=== PATIENT | male | born 1990 | race Caucasian/White ===

== ENCOUNTER 2017-02-24 10:38 | Inpatient (IN) | payer OTHER ==
[2017-02-24] MEDS ORDERED: ONDANSETRON HCL/PF 4 MG/ 2ML VIAL IVP ONE (11:10)
[2017-02-24] MEDS ORDERED: 0.9 % SODIUM CHLORIDE 1,000 ML IV ONE ×2 (11:15→12:06)
[2017-02-24 11:22] LABS: BASOPHILS % 0.3 (0.0-1.5); EOSINOPHILS % 1.1 % (0.0-6.8); MEAN CORPUSCULAR HEMOGLOBIN 28.9 pg (28.0-34.0); MEAN CORPUSCULAR VOLUME 84.6 fl (80.0-100.0); MONOCYTES % 7.8 % (0.0-11.0); NEUTROPHILS # 18.8 # k/uL (1.4-7.7)
[2017-02-24] MEDS ORDERED: 0.9 % SODIUM CHLORIDE 1,000 ML IV SCH ×2 (11:30→12:00)
--- NOTE | 2017-02-24 11:31 | ED Physician Documentation ---
General Adult - HISTORIAN Historian: patient, other (staff report from [facility]) - HPI Stated Complaint: dehydration Chief Complaint: General Adult Additional Information: Fentanyl abuse patient at [facility]. Has been in program and on Suboxone since 02/20/17. N/V began same day and persistent since. No abd. pain. No BM since starting program. Onset: days ago (4) Timing: still present Severity: moderate Modifying Factors: Fentanyl withdrawl program, no bm in over 4 days Further Comments: no Last known Well Date: 02/19/17 Last known Well Code/Unknown Code: Unknown - ROS CONST: no problems. denies: fever, sweating, recent illness, weakness, weight loss, chills EYES/ENT: none. denies: problems with vision, sore throat, nasal drainage, nasal congestion CVS/RESP: none. denies: chest pain, shortness of breath, cough GI/: vomiting, nausea, other (erectile dysfunction). denies: abdominal pain, diarrhea MS/SKIN/LYMPH: none NEURO/PSYCH: denies: headache, fainting, dizziness, tingling, numbness, difficulty walking, difficulty with speech, anxiety, depression - PAST HX Past History: other (Fentanyl addiction) Other History: none Surgeries/Procedures: none Immunizations: referred to PCP Allergies/Adverse Reactions: Allergies Allergy/AdvReac Type Severity Reaction Status Date / Time No Known Allergies Allergy Unverified 02/24/17 11:02 Home Medications: Ambulatory Orders Medication Instructions Recorded Buprenorphine HCl/Naloxone HCl 6 mg SL HS 02/24/17 [Suboxone 4 mg-1 mg Sl Film] Buprenorphine HCl/Naloxone HCl 8 mg SL [id number] 02/24/17 [Suboxone 4 mg-1 mg Sl Film] Quetiapine Fumarate [Seroquel] 50 mg PO HS 02/24/17 - SOCIAL HX Smoking History: cigarettes Alcohol Use: none Drug Use: other (Fentanyl) - FAMILY HX Family History: No - VITAL SIGNS Vital Signs: Vital Signs Temp Pulse Resp BP Pulse Ox 98.3 F 100 H 16 129/81 97 02/24/17 10:38 02/24/17 10:38 02/24/17 10:38 02/24/17 10:38 02/24/17 10:38 - REVIEWED ASSESSMENTS Nursing Assessment Reviewed: Yes Vitals Reviewed: Yes Progress - Results/Orders Results/Orders: cbc, cmp, ua, uds, etoh, ct abdomen/pelvis ordered - Progress Progress: pt. given 2 liters NS and 8 mg Zofran ivp in er, also 20 grams of lactulose (30 cc) and 2400 mg of MOM in er for constipation Critical Care Note - Critical Care Note Total Time (mins): 0 ED Results Lab/Radiology - Lab Results Lab Results: Lab Results 02/24/17 11:15 WBC 22.50 K/ul H K/ul (4.00-12.00) RBC 6.46 M/ul H M/ul (3.90-5.20) Hgb 18.6 g/dL H g/dL (12.0-18.0) Hct 54.6 % H % (37.0-53.0) MCV 84.6 fl fl (80.0-100.0) MCH 28.9 pg pg (28.0-34.0) MCHC 34.1 g/dL g/dL (30.0-36.0) RDW 13.0 % % (11.3-14.3) Plt Count 253 K/mm3 K/mm3 (130-400) Neut % (Auto) 83.8 % H % (39.0-79.0) Lymph % (Auto) 5.9 % L % (16.0-50.0) [place] % (Auto) 7.8 % % (0.0-11.0) Eos % (Auto) 1.1 % % (0.0-6.8) Baso % (Auto) 0.3 (0.0-1.5) Neut # (Auto) 18.8 # k/uL H # k/uL (1.4-7.7) Lymph # (Auto) 1.3 # k/uL # k/uL (0.6-4.0) [place] # (Auto) 1.8 # k/uL H # k/uL (0.0-0.9) Eos # (Auto) 0.3 # k/uL # k/uL (0.0-0.6) Baso # (Auto) 0.1 # k/uL # k/uL (0.0-0.5) Reactive Lymphs % 1.0 % % (0.0-5.0) Reactive Lymphs # 0.2 # k/uL # k/uL (0.0-0.8) - Radiology Radiology Impressions: ct abd/pelvis shows ileitis, constipation - Orders Orders: ED Orders Category Date Time Status CT ABD & PELVIS W/O CON Stat Exams 02/24/17 Ordered AMYLASE Routine Lab 02/24/17 11:10 Ordered CBC/PLATELET/DIFF Routine Lab 02/24/17 11:10 Ordered CMP Routine Lab 02/24/17 11:10 Ordered DRUG SCREEN URINE MEDICAL ONLY Routine Lab 02/24/17 Ordered ETHANOL MEDICAL USE ONLY Routine Lab 02/24/17 Ordered URINALYSIS Routine Lab 02/24/17 11:10 Ordered NORMAL SALINE @ 1000 MLS/HR ( 1000ml) (BOLUS) Med 02/24/17 11:30 Ordered 0.9 % Sodium Chloride [Normal Saline] 1,000 ml IV .Q1H Ondansetron HCl/Pf [Zofran 4 mg/2 ml] Med 02/24/17 11:10 Once 8 mg IVP NOW ONE General Adult Physical Exam - PHYSICAL EXAM GENERAL APPEARANCE: no distress EENT: eye inspection normal, ENT inspection normal, pharynx normal, no signs of dehydration, KING, no nystagmus, TM's nml NECK: normal inspection, thyroid normal, supple RESPIRATORY: no resp distress, chest non-tender, breath sounds normal CVS: reg rate & rhythm, heart sounds normal, equal pulses, no murmur, no gallop , PMI nml, no JVD ABDOMEN: soft, no organomegaly, no abdominal bruit, no distension, non-tender, decreased BS. No: rigid, hepatomegaly, mass BACK: normal inspection, no CVA tenderness SKIN: warm/dry, normal color EXTREMITIES: non-tender, normal range of motion, no evidence of injury, no edema NEURO: oriented X3, CN's nml as tested, motor nml, sensation nml, depressed mood /affect Discharge Clincal Impression: Dehydration, Ileitis, Hyponatremia Constipation Qualifiers: Constipation type: drug induced constipation Qualified Code(s): K59.03 - Drug induced constipation Referrals: Primary Doctor,No [REFERRING] - 2 Days Home Medications: Ambulatory Orders Buprenorphine HCl/Naloxone HCl [Suboxone 4 mg-1 mg Sl Film] 6 mg SL HS 02/24/17 Buprenorphine HCl/Naloxone HCl [Suboxone 4 mg-1 mg Sl Film] 8 mg SL [id number] 02/24 Quetiapine Fumarate [Seroquel] 50 mg PO HS 02/24/17 Comments: Case discussed with Zoltan Mckeon who accepts admission Condition: Stable Disposition: ADMITTED INPATIENT Decision to Admit: [id number] Decision Time: 13:30
[2017-02-24 11:39] LABS: eGFR (African) > 60; eGFR (Non-African) 52
[2017-02-24] MEDS ORDERED: POTASSIUM CHLORIDE 20 MEQ TABLET.ER PO ONE (12:02)
[2017-02-24] MEDS ORDERED: MAGNESIUM HYDROXIDE 400 MG/5 ML 30ML UDC PO ONE (13:54)
[2017-02-24] MEDS ORDERED: LACTULOSE 10 GM/15 ML UDC PO SCH (14:00)
[2017-02-24] MEDS ORDERED: LACTULOSE 10 GM/15 ML UDC PO ONE (14:00)
[2017-02-24] MEDS ORDERED: ONDANSETRON HCL/PF 4 MG/ 2ML VIAL IVP PRN (14:21)
[2017-02-24] MEDS ORDERED: QUEtiapine FUMARATE 25 MG TABLET PO ONE (14:21)
[2017-02-24] MEDS ORDERED: CYCLOBENZAPRINE HCL 5 MG TABLET PO PRN (14:32)
[2017-02-24] MEDS ORDERED: traMADol HCL 50 MG TABLET PO PRN (14:34)
[2017-02-24] MEDS ORDERED: SALINE FLUSH 10 ML DISP.SYRIN IVF ONE (14:41)
--- NOTE | 2017-02-24 14:47 | Diagnostic Imaging Report ---
FARHAN MONTIEL [facility] [id number] [facility] [address] [place], [place]. [address] Report Submission Date: Feb 24, 2017 12:41:34 PM CDT Patient Study Name: LUIZA MO Date: Feb 24, 2017 11:19:02 AM CDT Modality Type: CT\SR Gender: M Description: CT ABD & PELVIS W/O CO : 88 Institution: [facility] Physician: FARHAN MONTIEL Examination: CT Abdomen/pelvis History: Abdominal discomfort Comparison exams: None available Technique: CT Abdomen/pelvis without contrast protocol. Findings: Liver, spleen, adrenal glands, right kidney, pancreas and gallbladder are without irregularity given technique. No gallstone. 1 mm mid left calyceal calcification. No evidence for ureteral calcification abnormal dilation bilaterally. Few scattered pelvic phleboliths. Abdominal aorta without dilation or atherosclerotic disease. Bowel without contrast limiting evaluation. No evidence for acute mesenteric inflammation or free air. Stool within the large bowel limiting sensitivity. Few loops of small bowel with air-fluid levels upper central abdomen. Appendix is identified and is without inflammatory changes. Osseous structures are appropriate for age. Lung bases without infiltrate. Impression: 1 mm left nephrolithiasis. No evidence for ureterolithiasis. Few loops of small bowel with air-fluid levels upper central abdomen: Nonspecific finding. Cannot exclude mild enteritis/ileitis. Exam performed without oral contrast limiting sensitivity. Electronically signed on Feb 24, 2017 12:41:34 PM CDT by: Hany SPIVEY
[2017-02-24] MEDS: 0.9 % SODIUM CHLORIDE 1,000 ML with POTASSIUM CHLORIDE 20 MEQ IV SCH ×4 (14:48→22:09)
[2017-02-24] MEDS: METOCLOPRAMIDE HCL 5 MG TABLET PO SCH ×3 (14:55→20:31)
[2017-02-24] MEDS: metroNIDAZOLE 500 MG TABLET PO SCH ×2 (14:56→17:17)
[2017-02-24] MEDS: NICOTINE 21mg 1 EACH PATCH.TD24 TD SCH (15:06)
[2017-02-24 15:38] VITALS: BMI 25.1
[2017-02-24 16:51] LABS: APPEARANCE,URINE Clear (CLEAR); COLOR,URINE Yellow (YELLOW); OCCULT BLOOD,URINE Negative (NEGATIVE); PH URINE 8.5 (5.0 - 8.0)
[2017-02-24] MEDS ORDERED: HYDROcodone /APAP 10/325 1 EACH TABLET PO SCH (17:00)
[2017-02-24 17:06] LABS: AMORPHOUS SEDIMENT,UR FEW (NEGATIVE)
--- NOTE | 2017-02-24 17:10 | History and Physical Report ---
History of Present Illnes - History of Present Illness Reason for Visit: Dehydration, vomting, ileus, constipation History of Present Illness: 26 year old male brought to the ER from [facility] in [place] for nausea and vomiting. He was admitted to [facility] on 02/21/2017 and has had severe nausea and vomiting for the last 2-3 days. He was admitted for opiate use and believes he has been using fentanyl daily for the last several years. He states they have given him several anti-nausea medications but he is still vomiting. He states he feels very weak and dehydrated. He states he cannot keep even liquids down. He notes dizziness as well. He was found to have a creatinine of 1.7 and a Hgb of 18 in the ER. He was also found to have significant constipation and ileus. He was unable to urinate in the ER despite 2 L bolus of fluids. He was also found to be hypokalemic. At time of interview he has no been able to urinate x1 but has not had any BM. He notes nausea is improved but still present. He notes extreme fatigue and would like to sleep. He denies any other concerns at this time. - Past Medical History Cardiac: denies: HTN Pulmonary: denies: Asthma Gastrointestinal: Constipation Hepatobiliary: denies: Hep A/B/C Psych: Anxiety, Addictions (opiate), Panic (hx benzodiazapine use previously but not recently per patient ), Other (insomnia ) - Past Surgical History Past Surgical History: None - Past Social History Smoke: 1 pack per day (declines nicotine patch) Alcohol: Rare Drugs: Other (Fentanyl/opiates) Lives: With Family (Recently moved back in with parents. ) - Health Maintenance Health Maintenance: denies: Influenza Vaccine Influenza Vaccine: No Pneumonia Vaccine: No (Not recommended for his age group without other risk factors) Resuscitation Status: Resusciation Status Resuscitation Status Full Code - Unable to Obtain History Unable to Obtain: No Review of Systems - Review of Systems Constitutional: Sweats (Opitate withdrawal), Weakness (generalized - related to hydration status ). negative: Fever Eyes: vision change (double vision for several days worse on right - believed to be part of withdrawal) ENT: Nose Discharge (clear). negative: Ear Pain, Throat Pain Respiratory: negative: Cough, Dry, Shortness of Breath Cardiovascular: Light Headedness. negative: Chest Pain Gastrointestinal: Nausea, Vomiting (for the last 3 days, not since arrival at [facility]), Constipation. negative: Abdominal Pain Genitourinary: Other (very little urine output due to dehydration) Musculoskeletal: negative: Neck Pain, Back Pain Skin: negative: Rash, Lesions Neurological: Weakness (generalized related to hydration status) - Medications/Allergies Allergies/Adverse Reactions: Allergies Allergy/AdvReac Type Severity Reaction Status Date / Time No Known Allergies Allergy Unverified 02/24/17 11:02 Home Medications: Home Medications Buprenorphine HCl/Naloxone HCl [Suboxone 4 mg-1 mg Sl Film] 6 mg SL HS 02/24/17 Buprenorphine HCl/Naloxone HCl [Suboxone 4 mg-1 mg Sl Film] 8 mg SL [id number] 02/24 Quetiapine Fumarate [Seroquel] 50 mg PO HS 02/24/17 Current Inpatient Medications: Current Inpatient Medications Cyclobenzaprine HCl (Flexeril) 5 mg PO Q6 PRN PRN Reason: Cramping Enoxaparin Sodium (Lovenox) 40 mg SQ Q12 [facility] Stop: 03/10/17 20:59 Potassium Chloride 20 meq/ (Sodium Chloride) 1,010 mls @ 125 mls/hr IV Q8H [facility] Last Admin: 02/24/17 14:48 Dose: 125 mls/hr Lactulose (Enulose) 20 gm PO BID [facility] Metoclopramide HCl (Reglan) 10 mg PO ACHS [facility] Last Admin: 02/24/17 14:55 Dose: 10 mg Metronidazole (Flagyl) 500 mg PO TID [facility] Last Admin: 02/24/17 14:56 Dose: 500 mg Nicotine (Habitrol 21mg) 1 each TD DAILY [facility] Last Admin: 02/24/17 15:06 Dose: Not Given Ondansetron HCl (Zofran 4 Mg/2 Ml) 8 mg IVP Q6H PRN PRN Reason: Nausea / Vomiting Quetiapine Fumarate (Seroquel) 50 mg PO HS [facility] Tramadol HCl (Ultram) 50 mg PO Q6H PRN PRN Reason: PAIN Exam - Exam Vital Signs: Vital Signs (72 hours) 02/24/17 02/24/17 02/24/17 14:10 14:15 14:21 Temperature 98.5 F Pulse Rate 84 Pulse Rate [ 88 86 Pulse ox] Respiratory 16 22 Rate Blood Pressure 126/86 122/60 [Left Arm] O2 Sat by Pulse 98 100 99 Oximetry General: Alert, Oriented to Person, Oriented to Place, Oriented to Time, Cooperative, Average Body Habits HEENT: Atraumatic, PERRLA, EOMI, Dentition Normal. No: Mouth Mucous membr. moist/[employer] (dry), Pharyngeal Erythema, Tonsillar Exudate Neck: Normal Range of Motion Lungs: Clear to auscultation, Normal air movement, Speaks full Sentences. No: Wheezes Cardiovascular: Regular rate, Normal S1, Normal S2, No murmurs Abdomen: Soft, No tenderness, No masses, Decreased Bowel Sounds Integumentary: Normal, [employer], Warm, Dry Extremities: No clubbing, No cyanosis, No edema, Normal pulses, No tenderness/ swelling Neurological: Normal gait, Normal speech, Generalized Weakness (due to hydration status) Psych/Mental Status: Mental status NL - Laboratory Results Laboratory Results: Laboratory Results 02/24/17 16:45 Urine Color Yellow Urine Appearance Clear Urine pH 8.5 Ur Specific [place] 1.015 Urine Protein 1+ H Urine Ketones Negative Urine Occult Blood Negative Urine Nitrite Negative Urine Bilirubin Negative Urine Urobilinogen 1.0 Ur Leukocyte Esterase Negative Urine RBC 0-2 Urine WBC 0-2 Amorphous Sediment Few H Urine Glucose Negative Assessment/Plan - Assessment/Plan (1) Dehydration Status: Acute Current Visit: Yes Assessment: Patient has experiences several days of vomiting and reduce urine output prior to arrival in ER. He complains of weakness and fatigue. He was found to have a creatinine of 1.7 and a Hgb of 18 in the ER. There was still no urine output in the ER despite 2L bolus of fluid. After admission patient has had Urine output x1. Plan: Fluids running at 200cc/hour. Monitor I's and O's. Recheck labs in the morning. (2) Nausea and vomiting Status: Acute Current Visit: Yes Assessment: Patient was given zofran and phenergan at [facility], however nausea and vomiting persisted. Reglan and zofran in ER have helped with vomiting and reduced nausea. No vomiting since arrival in ER. Plan: Continue Reglan and Zofran. Advance diet very slowly (3) Constipation Status: Acute Current Visit: Yes Qualifiers: Constipation type: drug induced constipation Qualified Code(s): K59.03 - Drug induced constipation Assessment: Patient reports issues with constipation related to opiate use. He is uncertain of timing of last BM. He denies any abdominal pain. Ct of abdomen showed stool throughout the colon, and ileus with possible ileitis. Plan: Milk of magnesium and lactulose given in ER. Continue lactulose. (4) Hypokalemia Status: Acute Current Visit: Yes Assessment: Potassium was 3.0 on arrival in ER. Patient was complaining of weakness and dizziness. Plan: Oral K+ given in ER. K+ in NS continued on floor. (5) Opiate withdrawal Status: Acute Current Visit: Yes Assessment: Nausea, vomiting, consitpation are likely symptoms of his opiate withdrawal. Patient reports he stated using hydrocodone 4 years ago and in the last few years believes he has been using Fentanyl. He was being treated in the treatment room at [facility] since 02/21/2017, however they were not able to control his nausea and vomiting as outpatient which resulted in severe dehydration. He was on a suboxone taper at [facility]. Plan: Tramadol (ordered by Dr. Avila) and Flexeril orderd PRN for opiate withdrawal. Other symptoms will be managed symptomatically. It is our goal that patient will return to treatment facility on discharge. At this time he seems unsure that he will want to return to treatment. VTE Assessment - RISK FACTOR SCORE VTE RISK FACTOR SCORES: ACUTE INFECTION OTHER THEN SEPSIS (ileitis ), SMOKER - RISK VTE MODERATE RISK: SCORE OF 2 (RISK PROXIMAL DVT 2-4%) PROPHYAXIS NEEDED
[2017-02-24] MEDS ORDERED: ENOXAPARIN SODIUM 40 MG/0.4 ML DISP.SYRIN SQ ONE (17:14)
[2017-02-24] MEDS: ENOXAPARIN SODIUM 40 MG/0.4 ML DISP.SYRIN SQ SCH (20:31)
[2017-02-24] MEDS: LACTULOSE 10 GM/15 ML UDC PO SCH (20:31)
[2017-02-25] MEDS: 0.9 % SODIUM CHLORIDE 1,000 ML with POTASSIUM CHLORIDE 20 MEQ IV SCH ×4 (05:50→08:00)
[2017-02-25] MEDS: METOCLOPRAMIDE HCL 5 MG TABLET PO SCH ×3 (05:53→16:23)
[2017-02-25 06:30] LABS: BASOPHILS % 0.2 (0.0-1.5); EOSINOPHILS % 0.7 % (0.0-6.8); MEAN CORPUSCULAR HEMOGLOBIN 29.1 pg (28.0-34.0); MONOCYTES % 6.4 % (0.0-11.0); NEUTROPHILS # 12.2 # k/uL (1.4-7.7)
[2017-02-25 06:45] LABS: eGFR (African) > 60; eGFR (Non-African) > 60
[2017-02-25] MEDS ORDERED: 0.9 % SODIUM CHLORIDE 1,000 ML IV SCH (08:00)
[2017-02-25] MEDS ORDERED: 0.9 % SODIUM CHLORIDE 1,000 ML IV ONE (08:46)
[2017-02-25] MEDS: LACTULOSE 10 GM/15 ML UDC PO SCH (08:53)
[2017-02-25] MEDS: NICOTINE 21mg 1 EACH PATCH.TD24 TD SCH ×2 (08:54→08:59)
[2017-02-25] MEDS: metroNIDAZOLE 500 MG TABLET PO SCH ×2 (08:54→13:55)
[2017-02-25] MEDS: ENOXAPARIN SODIUM 40 MG/0.4 ML DISP.SYRIN SQ SCH (08:59)
--- NOTE | 2017-02-25 09:18 | Inpatient Progress Note ---
Objective - Exam Vitals and I&O: Vital Signs Temp 97.9 F 02/25/17 05:59 Pulse 85 02/25/17 08:00 Resp 16 02/25/17 05:59 BP 133/74 02/25/17 05:59 Pulse Ox 96 02/25/17 05:59 Intake & Output 02/24/17 02/24/17 02/25/17 11:59 23:59 11:59 Intake Total 1925 Balance 1925 Weight 81.647 kg Intake: IV 1625 Right Antecubital 1625 Oral 300 Other: Voiding Method Toilet # Voids 4 - Results Results: Laboratory Results WBC 15.00 K/ul (4.00-12.00) H 02/25/17 06:15 RBC 5.36 M/ul (3.90-5.20) H 02/25/17 06:15 Hgb 15.6 g/dL (12.0-18.0) 02/25/17 06:15 Hct 46.6 % (37.0-53.0) 02/25/17 06:15 MCV 87.0 fl (80.0-100.0) 02/25/17 06:15 MCH 29.1 pg (28.0-34.0) 02/25/17 06:15 MCHC 33.5 g/dL (30.0-36.0) 02/25/17 06:15 RDW 12.9 % (11.3-14.3) 02/25/17 06:15 Plt Count 184 K/mm3 (130-400) 02/25/17 06:15 Neut % (Auto) 81.3 % (39.0-79.0) H 02/25/17 06:15 Lymph % (Auto) 10.1 % (16.0-50.0) L 02/25/17 06:15 [place] % (Auto) 6.4 % (0.0-11.0) 02/25/17 06:15 Eos % (Auto) 0.7 % (0.0-6.8) 02/25/17 06:15 Baso % (Auto) 0.2 (0.0-1.5) 02/25/17 06:15 Neut # (Auto) 12.2 # k/uL (1.4-7.7) H 02/25/17 06:15 Lymph # (Auto) 1.5 # k/uL (0.6-4.0) 02/25/17 06:15 [place] # (Auto) 1.0 # k/uL (0.0-0.9) H 02/25/17 06:15 Eos # (Auto) 0.1 # k/uL (0.0-0.6) 02/25/17 06:15 Baso # (Auto) 0.0 # k/uL (0.0-0.5) 02/25/17 06:15 Reactive Lymphs % 1.4 % (0.0-5.0) 02/25/17 06:15 Reactive Lymphs # 0.2 # k/uL (0.0-0.8) 02/25/17 06:15 Sodium 141 mmol/L (136-145) 02/25/17 06:15 Potassium 3.7 mmol/L (3.5-5.0) 02/25/17 06:15 Chloride 107 mmol/L (98-110) 02/25/17 06:15 Carbon Dioxide 28 mmol/L (20-32) 02/25/17 06:15 BUN 18 mg/dL (10-26) 02/25/17 06:15 Creatinine 1.1 mg/dL (0.4-1.5) 02/25/17 06:15 Estimated Creat Clear 116 02/25/17 06:15 Est GFR ( Amer) > 60 (60-) 02/25/17 06:15 Est GFR (Non-Af Amer) > 60 (60-) 02/25/17 06:15 Glucose 104 mg/dL (70-99) H 02/25/17 06:15 Calcium 9.1 mg/dL (8.5-10.5) 02/25/17 06:15 Total Bilirubin 1.2 mg/dL (0.2-1.2) 02/25/17 06:15 AST 23 U/L (0-41) 02/25/17 06:15 ALT 34 U/L (0-45) 02/25/17 06:15 Alkaline Phosphatase 39 U/L (46-116) L 02/25/17 06:15 Total Protein 7.0 g/dL (6.0-8.5) 02/25/17 06:15 Albumin 4.4 g/dL (3.0-5.5) 02/25/17 06:15 Amylase 32 U/L (20-104) 02/24/17 11:15 Urine Color Yellow (YELLOW) 02/24/17 16:45 Urine Appearance Clear (CLEAR) 02/24/17 16:45 Urine pH 8.5 (5.0 - 8.0) 02/24/17 16:45 Ur Specific [place] 1.015 (1.010-1.030) 02/24/17 16:45 Urine Protein 1+ mg/dL (NEGATIVE) H 02/24/17 16:45 Urine Ketones Negative mg/dL (NEGATIVE) 02/24/17 16:45 Urine Occult Blood Negative (NEGATIVE) 02/24/17 16:45 Urine Nitrite Negative (NEGATIVE) 02/24/17 16:45 Urine Bilirubin Negative (NEGATIVE) 02/24/17 16:45 Urine Urobilinogen 1.0 Eu (0.2-1.0) 02/24/17 16:45 Ur Leukocyte Esterase Negative (NEGATIVE) 02/24/17 16:45 Urine RBC 0-2 (0-2 HPF) 02/24/17 16:45 Urine WBC 0-2 (0-5 HPF) 02/24/17 16:45 Amorphous Sediment Few (NEGATIVE) H 02/24/17 16:45 Urine Glucose Negative mg/dL (NEGATIVE) 02/24/17 16:45 Ethyl Alcohol < 10.0 MG/DL (<10.0) 02/24/17 11:15 Assessment/Plan - Assessment/Plan (1) Dehydration Status: Acute Current Visit: Yes (2) Nausea and vomiting Status: Acute Current Visit: Yes (3) Constipation Status: Acute Current Visit: Yes Qualifiers: Constipation type: drug induced constipation Qualified Code(s): K59.03 - Drug induced constipation (4) Hypokalemia Status: Acute Current Visit: Yes (5) Opiate withdrawal Status: Acute Current Visit: Yes
[2017-02-25 14:00] VITALS: BP 147/81
--- NOTE | 2017-02-25 16:20 | Discharge Summary ---
Discharge Summary - Discharge Sumary History of Present Illness: Damian is a 26 year old male that was brought to the hospital from [facility] for nausea and vomiting. He had been given zofran and phenergan for vomiting without any change in symptoms. He was found to be severely dehydrated upon arrival. He was started on Regaln here and had 0 emisis throughout his stay. He was found to be constipated. He has now had several large bowel movements. He denies any abdominal pain today. He has been able to urinate several times since arrival and labs corrected within 24 hours of starting aggressive IV fluid rehydration. He notes he is still having some vision changes that are unilateral. He notes some pressure behind his eyes and strabismus which he states has been worse than usual since starting withdrawal. He is also having mild vomiting, fatigue and generalized weakness, and sweating which he contributes to his withdrawal. He states he is feeling significantly better than he was at time of admission. He would like to return to [facility] to complete treatment. Exam: Patient appears to be feeling better and is sitting up in bed at time of exam. He has strabismus of the left eye. EOMs are intact bilaterally, conjunctiva are clear, there is no nystagmus. Lungs are clear in all bill on auscultation. Cardiovascular exam reveals regular rate and rhythm. Abdomen is soft, non-tender, and without hepatosplenomegaly. Skin turgor is improved and skin is pink and without lesions. Lower extremities are without swelling or discoloration. Sensation intact in all extremities. Additional Instructions: 1. Follow up with Dr. Flood on Monday02/27/2017 at [facility] facility. 2. If eye issues persist then will need appointment with eye specalist. Condition at Discharge: Stable Home Medications: Ambulatory Orders Medication Instructions Recorded Quetiapine Fumarate [Seroquel] 50 mg PO HS 02/24/17 Metoclopramide HCl [Reglan] 10 mg PO ACHS tablet 02/25/17 Consultations this Visit: None Procedures this Visit: None Allergies/Adverse Reactions: Allergies Allergy/AdvReac Type Severity Reaction Status Date / Time No Known Allergies Allergy Unverified 02/24/17 11:02 Discharge Summary: Patient will be discharged to [facility] to complete treatment for opiate withdrawal. We will continue Reglan therapy there for nausea. He will be seen on Monday for follow up by Dr. Flood. He is to push fluids to avoid dehydration and constipation. He has not required any medication for withdrawal here though he was on Suboxone prior to admission. - Final Diagnosis (1) Dehydration Problems: Continue oral hydration by pushing fluids. (2) Nausea and vomiting Problems: Continue Reglan (3) Constipation Problems: Resolved. PRNs available at [facility] if needed. (4) Hypokalemia Problems: Resolved. (5) Opiate withdrawal Problems: Continue treatment at [facility].
[2017-02-25] MEDS ORDERED: QUEtiapine FUMARATE 25 MG TABLET PO SCH (21:00)
== END 2017-02-25 17:43 | disposition short-term general hospital (02) | DRG 641 ==
LOC: ED 10:38 → SOUTH 14:00
PROVIDERS: ADMIT Physician Assistant; ATTEND Physician Assistant
DX: E86.0 Dehydration (principal); F11.23 Opioid dependence with withdrawal; R11.2 Nausea with vomiting, unspecified; E87.6 Hypokalemia
CPT/HCPCS: 36415; 74176; 80053; 80320; 81002; 82150; 85025; A9270; J1650; J2405; J3480; J7030; 99223; 99238; 99284; G0480; S1016